=== PATIENT | male | born 1955 | race Two or more races ===

== ENCOUNTER 2020-09-23 11:02 | Inpatient (IN) | payer OTHER ==
[~2020-09-23] VITALS: Ht 154.9 cm; Wt 60.6 kg
[2020-09-23] MEDS ORDERED: SODIUM CHLORIDE 0.9% 500 ML IVB ONE (11:15)
[2020-09-23 12:14] LABS: Basophils # (auto) 0 10 ^3/uL (0-0.2); Basophils % (auto) 0.2 % (0.0-2.0); Eosinophils # (auto) 0 10 ^3/uL (0-0.8); Hematocrit 34.7 % (41.0-53.0); Hemoglobin 12.1 g/dL (13.5-17.5); Lymphocytes % (auto) 12.1 % (10.0-50.0); Mean Corpuscular Hemoglobin 29.8 pg (28.0-32.0); Mean Corpuscular Volume 85.1 fL (80.0-100.0); Monocytes # (auto) 0.3 10 ^3/uL (0-1.3); Monocytes % (auto) 4.3 % (0.0-12.0); Neutrophils # (auto) 6.7 10 ^3/uL (1.6-8.6); Neutrophils % (auto) 83.4 % (37.0-80.0); Nucleated Red Blood Cells % 0.1 %; Platelet Count (auto) 190 10^3/uL (140-450); Red Blood Cells 4.08 10^6/uL (4.5-5.90); Red Cell Distribution Width 14.1 % (11.8-14.3)
[2020-09-23 12:33] LABS: INR 1.1 (0.9-1.15); Partial Thromboplastin Time 30.5 sec (23.0-31.2)
[2020-09-23 12:38] LABS: Chloride 107 mmol/L (98-107); Potassium 3.3 mmol/L (3.5-5.1); Sodium 136 mmol/L (136-145)
[2020-09-23 12:52] LABS: Alanine Aminotransferase 121 U/L (16-61); Albumin 2.3 g/dL (3.4-5.0); Alkaline Phosphatase 282 U/L (45-117); Amylase 40 U/L (25-115); Anion Gap 11 (5-15); Aspartate Aminotransferase 152 U/L (15-37); BUN/Creatinine Ratio 23.9; Bilirubin, Total 1.6 mg/dL (0.2-1.0); Blood Urea Nitrogen 11 mg/dL (7-18); Calcium 8.4 mg/dL (8.5-10.1); Carbon Dioxide 18 mmol/L (21-32); GFR African American 237 mL/min; GFR Non-African American 196 mL/min; Glucose 102 mg/dL (74-106); Lipase 182 U/L (73-393); Magnesium 2.3 mg/dL (1.6-2.6); Total Protein 6.6 g/dL (6.4-8.2)
[2020-09-23] MEDS ORDERED: ONDANSETRON HCL 4 MG/2 ML VIAL IV PRN (13:30)
[2020-09-23] MEDS ORDERED: HYDROcodone-ACET 5/325MG TAB PO PRN (13:30)
[2020-09-23] MEDS ORDERED: LORazepam 0.5 MG TAB PO PRN (13:30)
[2020-09-23] MEDS ORDERED: NITROGLYCERIN 0.4 MG SL TAB SL PRN (13:30)
[2020-09-23] MEDS ORDERED: VANCOMYCIN PER PHARMACY 0 MG IV SCH (13:30)
[2020-09-23] MEDS ORDERED: DOCUSATE SOD 100 MG CAP PO PRN (13:30)
[2020-09-23] MEDS ORDERED: MORPHINE SULF INJ 2 MG/ML SYRINGE 1ML IV PRN ×2 (13:30)
[2020-09-23] MEDS ORDERED: HYDROCORTISONE SOD SUCC 100 MG/2ML INJ VIAL IV ONE (13:30)
[2020-09-23] MEDS ORDERED: ALUM & MAG HYDROX-SIMETH LIQ(MAALOX) 30 ML PO PRN (13:30)
[2020-09-23 13:59] LABS: Cholesterol 111 mg/dL (< 200)
[2020-09-23 14:02] LABS: HDL Cholesterol 14 mg/dL (40-59); LDL Cholesterol 56 mg/dL (< 100); Triglycerides 266 mg/dL (< 150)
[2020-09-23] MEDS ORDERED: PIPERACILLIN-TAZO 4.5GM 100 ML IV ONE (14:30)
[2020-09-23] MEDS: SOD CHL 0.45% 1,000 ML IV SCH ×2 (15:00→17:55)
[2020-09-23] MEDS ORDERED: ESOMEPRAZOLE 40 MG/5ml VIAL INJ IV ONE ×2 (15:00→16:00)
[2020-09-23] MEDS ORDERED: POTA-180 PO (15:17)
[2020-09-23] MEDS ORDERED: CHOL100025 PO (15:17)
[2020-09-23] MEDS ORDERED: IBUP400T22 PO (15:17)
[2020-09-23] MEDS ORDERED: METF-370 PO (15:17)
[2020-09-23] MEDS ORDERED: DOXY100C2 PO (15:17)
[2020-09-23] MEDS ORDERED: VANCOMYCIN 1GM/250ML 250 ML IV ONE (16:00)
[2020-09-23 16:52] VITALS: BP 147/87
[2020-09-23] MEDS ORDERED: cefTRIAXone 1GM/50ML D5W 50 ML IV ONE (20:45)
[2020-09-23] MEDS ORDERED: PIPERACILLIN-TAZOB 3.375GM 100 ML IV SCH (21:00)
[2020-09-23] MEDS ORDERED: POTASSIUM CHL 20 Meq TABLET PO ONE (21:15)
[2020-09-23] MEDS ORDERED: DEXTROSE (50%) 50ML SYRG IV PRN (21:30)
[2020-09-23] MEDS ORDERED: hydrALAZINE HCL 20 MG/ML VL IV PRN (21:30)
[2020-09-23 22:00] VITALS: BP 146/77
[2020-09-23] MEDS: SOD CHL 0.9%/ KCL 20MEQ 1,000 ML IV SCH (22:23)
[2020-09-23] MEDS: FAMOTIDINE (10MG/ML) 2ML VL IV SCH (22:23)
[2020-09-23] MEDS: InsuLIN REG 1unit/0.01ml Soln (100units/ml) SC SCH (22:23)
[2020-09-23] MEDS: ACCU-CHEK COMFORT CURVE STRIP VI SCH (22:24)
[2020-09-23] MEDS: ATORVASTATIN 20 MG TAB PO SCH (22:35)
[2020-09-23] MEDS: GEMFIBROZIL 600 MG TAB PO SCH (22:36)
[2020-09-23] MEDS: metroNIDAZOLE 500MG/100ML 100 ML IV SCH (22:50)
[2020-09-24 05:12] VITALS: BP 133/76
[2020-09-24] MEDS: SOD CHL 0.9%/ KCL 20MEQ 1,000 ML IV SCH ×3 (05:13→21:28)
[2020-09-24] MEDS ORDERED: VANCOMYCIN 1GM/250ML 250 ML IV SCH (06:00)
[2020-09-24] MEDS: ACCU-CHEK COMFORT CURVE STRIP VI SCH ×4 (06:28→21:27)
[2020-09-24] MEDS: metroNIDAZOLE 500MG/100ML 100 ML IV SCH ×3 (06:32→21:25)
[2020-09-24] MEDS: InsuLIN REG 1unit/0.01ml Soln (100units/ml) SC SCH ×4 (06:47→21:27)
[2020-09-24 07:50] LABS: Urine Bacteria MOD /hpf (None Seen); Urine Blood Negative /uL (Negative); Urine Hyaline Cast FEW /lpf (0 - 2); Urine Mucus FEW (None Seen); Urine WBC 13 /hpf (0 - 3)
[2020-09-24 07:57] LABS: Amphetamine Screen, Urine NEGATIVE (NEGATIVE); Barbiturate Scree,Urine NEGATIVE (NEGATIVE); Benzodiazephine Screen, Urine NEGATIVE (NEGATIVE); Cannabinoid Screen, Urine NEGATIVE (NEGATIVE); Cocaine Screen, Urine NEGATIVE (NEGATIVE); Opiate Scree,Urine POSITIVE (NEGATIVE); Phencyclidine Screen, Urine NEGATIVE (NEGATIVE)
[2020-09-24 08:37] LABS: Basophils # (auto) 0 10 ^3/uL (0-0.2); Basophils % (auto) 0.5 % (0.0-2.0); Eosinophils # (auto) 0 10 ^3/uL (0-0.8); Eosinophils % (auto) 0.1 % (0.0-7.0); Hematocrit 33.1 % (41.0-53.0); Hemoglobin 11.5 g/dL (13.5-17.5); Lymphocytes # (auto) 2.2 10 ^3/uL (0.4-5.4); Lymphocytes % (auto) 25.2 % (10.0-50.0); Mean Corpuscular Hemoglobin 29.4 pg (28.0-32.0); Mean Corpuscular Hgb Conc. 34.7 g/dL (32.0-36.0); Mean Corpuscular Volume 84.6 fL (80.0-100.0); Monocytes # (auto) 0.5 10 ^3/uL (0-1.3); Monocytes % (auto) 5.5 % (0.0-12.0); Neutrophils % (auto) 68.7 % (37.0-80.0); Nucleated Red Blood Cells % 0.1 %; Platelet Count (auto) 169 10^3/uL (140-450); Red Blood Cells 3.91 10^6/uL (4.5-5.90); Red Cell Distribution Width 14.1 % (11.8-14.3); White Blood Cell 8.7 10^3/uL (4.4-10.8)
[2020-09-24 08:38] LABS: INR 1.07 (0.9-1.15); Partial Thromboplastin Time 28.9 sec (23.0-31.2)
[2020-09-24 08:59] LABS: Potassium 3.4 mmol/L (3.5-5.1)
[2020-09-24 09:00] VITALS: BP 126/79
[2020-09-24 09:06] LABS: Albumin 2.3 g/dL (3.4-5.0); BUN/Creatinine Ratio 19.2; Bilirubin, Total 1.2 mg/dL (0.2-1.0); Calcium 7.8 mg/dL (8.5-10.1); Magnesium 2.3 mg/dL (1.6-2.6); Phosphorus 2.8 mg/dL (2.5-4.90); Total Protein 6.5 g/dL (6.4-8.2)
[2020-09-24] MEDS: cefTRIAXone 1GM/50ML D5W 50 ML IV SCH (09:50)
[2020-09-24] MEDS: GEMFIBROZIL 600 MG TAB PO SCH (09:50)
[2020-09-24] MEDS: FAMOTIDINE (10MG/ML) 2ML VL IV SCH (09:50)
[2020-09-24] MEDS ORDERED: ESOMEPRAZOLE 40 MG/5ml VIAL INJ IV SCH (10:00)
[2020-09-24] MEDS ORDERED: ENOXAPARIN SOD 40 MG/0.4 ML SYRINGE SC SCH (10:00)
[2020-09-24] MEDS ORDERED: PANTOPRAZOLE 40 MG/10 ML VIAL INJ IV SCH (10:00)
[2020-09-24 10:59] LABS: % Iron Saturation 22.5 % (20-55)
[2020-09-24] MEDS ORDERED: ACETAMINOPHEN 325 MG TAB PO PRN (12:00)
[2020-09-24 13:00] VITALS: BP 141/88
[2020-09-24] MEDS: PANTOPRAZOLE 40 MG TAB PO SCH (14:30)
[2020-09-24 17:00] VITALS: BP 137/85
[2020-09-24] MEDS: metFORMIN HYDROCHLORIDE 500 MG TAB PO SCH (17:37)
[2020-09-24] MEDS: ATORVASTATIN 20 MG TAB PO SCH (21:25)
[2020-09-24 22:00] VITALS: BP 144/84
[2020-09-25 05:00] VITALS: BP 137/82
[2020-09-25 06:33] LABS: BUN/Creatinine Ratio 20.5; Calcium 7.6 mg/dL (8.5-10.1)
[2020-09-25 06:34] LABS: Albumin 2.1 g/dL (3.4-5.0); Bilirubin, Direct 0.5 mg/dL (0-0.2); Bilirubin, Total 1.1 mg/dL (0.2-1.0)
[2020-09-25 06:39] LABS: Potassium 2.6 mmol/L (3.5-5.1)
[2020-09-25] MEDS: SOD CHL 0.9%/ KCL 20MEQ 1,000 ML IV SCH ×2 (06:53→18:24)
[2020-09-25] MEDS: metroNIDAZOLE 500MG/100ML 100 ML IV SCH ×2 (06:53→21:07)
[2020-09-25] MEDS: ACCU-CHEK COMFORT CURVE STRIP VI SCH ×4 (06:55→22:17)
[2020-09-25] MEDS: InsuLIN REG 1unit/0.01ml Soln (100units/ml) SC SCH ×4 (06:56→22:00)
[2020-09-25] MEDS: metFORMIN HYDROCHLORIDE 500 MG TAB PO SCH ×2 (08:27→17:52)
[2020-09-25 08:30] VITALS: BP 139/80
[2020-09-25] MEDS: ZINC SULFATE 220mg CAP or TAB PO SCH (09:56)
[2020-09-25] MEDS: PANTOPRAZOLE 40 MG TAB PO SCH (09:56)
[2020-09-25] MEDS: MULTIPLE VITAMIN TAB PO SCH (09:56)
[2020-09-25] MEDS: cefTRIAXone 1GM/50ML D5W 50 ML IV SCH (09:56)
[2020-09-25] MEDS: CHOLECALCIFEROL (VITD3) 2,000 UNIT CAP/TAB PO SCH (09:57)
[2020-09-25] MEDS: ASCORBIC ACID 500 MG TAB PO SCH (09:57)
[2020-09-25] MEDS ORDERED: OMEPRAZOLE 20MG/10ML ORAL SUSP GT SCH (10:00)
[2020-09-25] MEDS ORDERED: IBUPROFEN 600 MG TAB PO ONE (10:00)
[2020-09-25 12:30] VITALS: BP 127/75
[2020-09-25] MEDS ORDERED: POTASSIUM CHLORIDE 60 MEQ, LIDOCAINE 1% (LOCAL ANESTH.) 6 ML in SODIUM CHL 0.9% 500 ML IV ONE (13:30)
[2020-09-25] MEDS: IBUPROFEN 600 MG TAB PO SCH ×3 (14:00→22:16)
[2020-09-25 16:58] VITALS: BP 130/82
[2020-09-25] MEDS: POTASSIUM CHL 20 Meq TABLET PO SCH ×2 (20:07→21:40)
[2020-09-25] MEDS: ATORVASTATIN 20 MG TAB PO SCH (21:07)
[2020-09-25 22:00] VITALS: BP 149/90
[2020-09-26] MEDS: SOD CHL 0.9%/ KCL 20MEQ 1,000 ML IV SCH ×3 (01:53→15:55)
[2020-09-26 05:00] VITALS: BP 105/60
[2020-09-26] MEDS: metroNIDAZOLE 500MG/100ML 100 ML IV SCH ×3 (05:09→21:27)
[2020-09-26] MEDS: InsuLIN REG 1unit/0.01ml Soln (100units/ml) SC SCH ×4 (06:30→22:00)
[2020-09-26] MEDS: ACCU-CHEK COMFORT CURVE STRIP VI SCH ×4 (06:30→22:54)
[2020-09-26 07:13] LABS: Potassium 3.8 mmol/L (3.5-5.1)
[2020-09-26 07:17] LABS: BUN/Creatinine Ratio 21.2; Calcium 7.9 mg/dL (8.5-10.1)
[2020-09-26 08:00] VITALS: BP 113/62
[2020-09-26] MEDS: metFORMIN HYDROCHLORIDE 500 MG TAB PO SCH ×2 (08:20→17:26)
[2020-09-26] MEDS: cefTRIAXone 1GM/50ML D5W 50 ML IV SCH (08:21)
[2020-09-26 08:43] VITALS: BP 113/62
[2020-09-26] MEDS: POTASSIUM CHL 20 Meq TABLET PO SCH ×2 (10:28→21:29)
[2020-09-26] MEDS: MULTIPLE VITAMIN TAB PO SCH (10:28)
[2020-09-26] MEDS: ZINC SULFATE 220mg CAP or TAB PO SCH (10:28)
[2020-09-26] MEDS: PANTOPRAZOLE 40 MG TAB PO SCH (10:29)
[2020-09-26] MEDS: CHOLECALCIFEROL (VITD3) 2,000 UNIT CAP/TAB PO SCH (10:29)
[2020-09-26] MEDS: ASCORBIC ACID 500 MG TAB PO SCH (10:29)
[2020-09-26 12:31] LABS: Hepatitis A Ab IgM Negative
[2020-09-26 12:32] LABS: Hepatitis B Core IgM Negative; Hepatitis B Surface Antigen Negative (Negative); Hepatitis C Antibody Negative (Negative)
[2020-09-26 13:24] VITALS: BP 123/74
[2020-09-26 16:31] VITALS: BP 134/74
[2020-09-26] MEDS: ATORVASTATIN 20 MG TAB PO SCH (21:28)
[2020-09-26 22:00] VITALS: BP 133/74
[2020-09-27] MEDS: SOD CHL 0.9%/ KCL 20MEQ 1,000 ML IV SCH ×3 (03:39→16:55)
[2020-09-27 05:00] VITALS: BP 135/77
[2020-09-27] MEDS: metroNIDAZOLE 500MG/100ML 100 ML IV SCH ×3 (05:09→20:43)
[2020-09-27] MEDS: IBUPROFEN 600 MG TAB PO PRN ×2 (05:18→20:44)
[2020-09-27] MEDS: InsuLIN REG 1unit/0.01ml Soln (100units/ml) SC SCH ×4 (06:36→21:02)
[2020-09-27] MEDS: ACCU-CHEK COMFORT CURVE STRIP VI SCH ×4 (06:36→20:44)
[2020-09-27 06:58] LABS: Calcium 7.8 mg/dL (8.5-10.1); Potassium 3.6 mmol/L (3.5-5.1)
[2020-09-27 07:02] LABS: BUN/Creatinine Ratio 10.5
[2020-09-27 08:42] VITALS: BP 106/59
[2020-09-27] MEDS: cefTRIAXone 1GM/50ML D5W 50 ML IV SCH (08:54)
[2020-09-27] MEDS: metFORMIN HYDROCHLORIDE 500 MG TAB PO SCH ×2 (08:54→17:19)
[2020-09-27] MEDS: POTASSIUM CHL 20 Meq TABLET PO SCH ×2 (08:55→20:44)
[2020-09-27] MEDS: MULTIPLE VITAMIN TAB PO SCH (08:55)
[2020-09-27] MEDS: ZINC SULFATE 220mg CAP or TAB PO SCH (08:55)
[2020-09-27] MEDS: CHOLECALCIFEROL (VITD3) 2,000 UNIT CAP/TAB PO SCH (08:56)
[2020-09-27] MEDS: ASCORBIC ACID 500 MG TAB PO SCH (08:56)
[2020-09-27] MEDS: PANTOPRAZOLE 40 MG TAB PO SCH (09:05)
[2020-09-27] MEDS ORDERED: LOPERAMIDE HCL 2 MG CAP PO PRN (10:15)
[2020-09-27] MEDS ORDERED: LOPERAMIDE HCL 2 MG CAP PO ONE (10:15)
[2020-09-27] MEDS: LOPERAMIDE HCL 2 MG CAP PO SCH (11:30)
[2020-09-27] MEDS ORDERED: HYOSCYAMINE SULF 0.125 MG ODT TAB PO PRN (11:30)
[2020-09-27] MEDS ORDERED: levoFLOXacin 750MG 150 ML IV ONE (12:15)
[2020-09-27 12:30] VITALS: BP 129/59
[2020-09-27 16:00] VITALS: BP 143/90
[2020-09-27] MEDS: ATORVASTATIN 20 MG TAB PO SCH (20:44)
[2020-09-27 22:00] VITALS: BP 150/89
[2020-09-28 05:25] VITALS: BP 141/82
[2020-09-28] MEDS: metroNIDAZOLE 500MG/100ML 100 ML IV SCH ×3 (06:13→22:38)
[2020-09-28] MEDS: SOD CHL 0.9%/ KCL 20MEQ 1,000 ML IV SCH ×3 (06:13→17:55)
[2020-09-28] MEDS: ACCU-CHEK COMFORT CURVE STRIP VI SCH ×4 (06:21→22:40)
[2020-09-28] MEDS: InsuLIN REG 1unit/0.01ml Soln (100units/ml) SC SCH ×4 (06:21→22:00)
[2020-09-28 07:10] LABS: Albumin 2.3 g/dL (3.4-5.0); Calcium 8.3 mg/dL (8.5-10.1); Potassium 4.2 mmol/L (3.5-5.1)
[2020-09-28 07:15] LABS: BUN/Creatinine Ratio 10.2; Bilirubin, Total 1.1 mg/dL (0.2-1.0); Total Protein 6.8 g/dL (6.4-8.2)
[2020-09-28] MEDS: metFORMIN HYDROCHLORIDE 500 MG TAB PO SCH ×2 (08:08→18:01)
[2020-09-28 09:18] VITALS: BP 128/77
[2020-09-28] MEDS: levoFLOXacin 750MG 150 ML IV SCH (09:57)
[2020-09-28] MEDS: LOPERAMIDE HCL 2 MG CAP PO SCH (09:57)
[2020-09-28] MEDS: ZINC SULFATE 220mg CAP or TAB PO SCH (09:57)
[2020-09-28] MEDS: MULTIPLE VITAMIN TAB PO SCH (09:58)
[2020-09-28] MEDS: POTASSIUM CHL 20 Meq TABLET PO SCH ×2 (09:58→22:38)
[2020-09-28] MEDS: ASCORBIC ACID 500 MG TAB PO SCH (09:58)
[2020-09-28] MEDS: CHOLECALCIFEROL (VITD3) 2,000 UNIT CAP/TAB PO SCH (09:58)
[2020-09-28] MEDS: PANTOPRAZOLE 40 MG TAB PO SCH (09:58)
[2020-09-28 12:58] VITALS: BP 135/77
[2020-09-28 17:00] VITALS: BP 128/70
[2020-09-28 22:00] VITALS: BP 121/70
[2020-09-28] MEDS: ATORVASTATIN 20 MG TAB PO SCH (22:00)
[2020-09-29] MEDS: SOD CHL 0.9%/ KCL 20MEQ 1,000 ML IV SCH ×2 (02:13→10:35)
[2020-09-29 05:00] VITALS: BP 140/72
[2020-09-29] MEDS: metroNIDAZOLE 500MG/100ML 100 ML IV SCH ×2 (06:14→14:00)
[2020-09-29] MEDS: InsuLIN REG 1unit/0.01ml Soln (100units/ml) SC SCH ×2 (06:15→11:30)
[2020-09-29] MEDS: ACCU-CHEK COMFORT CURVE STRIP VI SCH ×2 (06:15→11:30)
[2020-09-29] MEDS: levoFLOXacin 750MG 150 ML IV SCH (08:12)
[2020-09-29] MEDS: metFORMIN HYDROCHLORIDE 500 MG TAB PO SCH (08:12)
[2020-09-29] MEDS: ZINC SULFATE 220mg CAP or TAB PO SCH (08:12)
[2020-09-29] MEDS: POTASSIUM CHL 20 Meq TABLET PO SCH (08:13)
[2020-09-29] MEDS: MULTIPLE VITAMIN TAB PO SCH (08:13)
[2020-09-29] MEDS: ASCORBIC ACID 500 MG TAB PO SCH (08:14)
[2020-09-29] MEDS: CHOLECALCIFEROL (VITD3) 2,000 UNIT CAP/TAB PO SCH (08:14)
[2020-09-29] MEDS: PANTOPRAZOLE 40 MG TAB PO SCH (08:23)
[2020-09-29] MEDS: LOPERAMIDE HCL 2 MG CAP PO SCH (08:23)
[2020-09-29 09:00] VITALS: BP 119/75
[2020-09-29 10:36] VITALS: BP 119/75
[2020-09-29] MEDS: IBUPROFEN 600 MG TAB PO PRN (14:55)
== END 2020-09-29 16:10 | disposition home or self-care (01) | DRG 871 ==
LOC: ER 11:02 → EAST 13:19 → TELE-EAST 22:37
PROVIDERS: ADMIT Hospitalist; ATTEND Family Medicine
DX: A02.1 Salmonella sepsis (principal); U07.1 COVID-19; I16.9 Hypertensive crisis, unspecified; D64.9 Anemia, unspecified; E11.9 Type 2 diabetes mellitus without complications; E78.2 Mixed hyperlipidemia; E86.0 Dehydration; E87.6 Hypokalemia; I10 Essential (primary) hypertension; K52.9 Noninfective gastroenteritis and colitis, unspecified; K76.0 Fatty (change of) liver, not elsewhere classified; K21.9 Gastro-esophageal reflux disease without esophagitis; R79.82 Elevated C-reactive protein (CRP); R79.89 Other specified abnormal findings of blood chemistry; A41.89 Other specified sepsis; Z78.9 Other specified health status
CPT/HCPCS: 36415; 71045; 74176; 80048; 80053; 80061; 80074; 80076; 80307; 81001; 82150; 82270; 82306; 82378; 82728; 82962; 83036; 83540; 83550; 83615; 83690; 83735; 83986; 84100; 84443; 84484; 85025; 85610; 85730; 86141; 87040; 87045; 87077; 87081; 87086; 87186; 87426; 87427; 87493; 93005; 93306; 96360; 96361; G0378; J0696; J1956; J2001; J3490

== ENCOUNTER 2023-07-31 09:46 | Emergency (ER) | payer OTHER ==
[~2023-07-31] VITALS: Ht 157.5 cm; Wt 65.0 kg
[~2023-07-31 09:46] MED LIST: CHOL100025 PO; DOXY100C4 PO; IBUP-1453 PO; METF-370 PO; POTA-180 PO
[2023-07-31 10:47] VITALS: RESP 16; O2SAT 96
[2023-07-31] MEDS: ONDANSETRON HCL 4 MG/2 ML VIAL IV ONE (10:59)
[2023-07-31] MEDS: LORazepam 2MG/ML-1ML VIAL IV ONE (10:59)
[2023-07-31 11:06] LABS: Basophils # (auto) 0.1 10 ^3/uL (0-0.2); Basophils % (auto) 0.7 % (0.0-2.0); Eosinophils # (auto) 0 10 ^3/uL (0-0.8); Eosinophils % (auto) 0.2 % (0.0-7.0); Hematocrit 43.9 % (41.0-53.0); Hemoglobin 14.4 g/dL (13.5-17.5); Lymphocytes # (auto) 7.3 10 ^3/uL (0.4-5.4); Mean Corpuscular Hemoglobin 29.1 pg (28.0-32.0); Mean Corpuscular Hgb Conc. 32.8 g/dL (32.0-36.0); Mean Corpuscular Volume 88.5 fL (80.0-100.0); Monocytes # (auto) 0.9 10 ^3/uL (0-1.3); Monocytes % (auto) 4.4 % (0.0-12.0); Neutrophils % (auto) 60.7 % (37.0-80.0); Nucleated Red Blood Cells % 0.1 %; Red Blood Cells 4.96 10^6/uL (4.5-5.90); Red Cell Distribution Width 13.8 % (11.8-14.3); White Blood Cell 21.4 10^3/uL (4.4-10.8)
[2023-07-31 11:32] LABS: Alanine Aminotransferase 30 U/L (7-40); Albumin 4.6 g/dL (3.2-4.8); Alkaline Phosphatase 89 U/L (46-116); Anion Gap 10 (5-15); Aspartate Aminotransferase 20 U/L (13-40); Bilirubin, Total 0.7 mg/dL (0.2-1.0); Blood Urea Nitrogen 13 mg/dL (9-23); Calcium 9.8 mg/dL (8.5-10.1); Carbon Dioxide 24 mmol/L (20-30); Chloride 106 mmol/L (98-107); Glucose 262 mg/dL (74-106); Sodium 140 mmol/L (136-145)
[2023-07-31] MEDS: PROCHLORPERAZINE EDISYLATE 5 MG/ML 2ML VIAL IV ONE (12:59)
[2023-07-31 13:04] LABS: INR 1.02 (0.9-1.15); Partial Thromboplastin Time 24.4 SEC (24.5-34.5); Prothrombin Time 10.7 sec (9.3-11.8)
[2023-07-31] MEDS: ASPirin 81 mg TAB PO ONE (13:13)
[2023-07-31 13:57] VITALS: BP 144/80; PULSE 62; RESP 19; TEMP 96.8; O2SAT 96
== END 2023-07-31 14:14 | disposition short-term general hospital (02) ==
LOC: ER 09:46
DX: I63.9 Cerebral infarction, unspecified (principal); E11.65 Type 2 diabetes mellitus with hyperglycemia; R42 Dizziness and giddiness; E78.5 Hyperlipidemia, unspecified; I10 Essential (primary) hypertension; D72.829 Elevated white blood cell count, unspecified
CPT/HCPCS: 36415; 70450; 70551; 80053; 82962; 84484; 85025; 85610; 85730; 93005; 96374; 96375; 99291; J0780; J2060; J2405